=== PATIENT | female | born 1995 | race Caucasian/White ===

== ENCOUNTER 2021-08-07 17:22 | Emergency (ER) | payer BC ==
[~2021-08-07] VITALS: Ht 157.5 cm; Wt 52.2 kg
--- NOTE | 2021-08-07 19:40 | NUR ---
pt bibself from home, pt c/o of wheezing for 2 days on and off, pt uses albuterol inhaler but was not effective. per pt has allergies to cats, dogs, pollen, bananas. denies allergies to medication. pt remains with breathing tx on from RT and verbalizes decreased wheezing. pt connected to monitor.
[2021-08-07] MEDS: IPRATROPIUM NEB FS 0.5 MG/2.5 ML AMPUL.NEB NEB ONE (19:42)
[2021-08-07] MEDS: ALBUTEROL FS 2.5 MG/3 ML VIAL.NEB NEB ONE (19:42)
[2021-08-07] MEDS ORDERED: ALBUTEROL FS 2.5 MG/3 ML VIAL.NEB ONE (19:44)
[2021-08-07] MEDS ORDERED: IPRATROPIUM NEB FS 0.5 MG/2.5 ML AMPUL.NEB ONE (19:44)
[2021-08-07] MEDS ORDERED: predniSONE 20 MG TABLET ONE (20:04)
[2021-08-07] MEDS: predniSONE 20 MG TABLET PO ONE (20:05)
[2021-08-07] MEDS ORDERED: PRED20TA PO (20:07)
[2021-08-07] MEDS ORDERED: ALBU18HF2 INH (20:07)
[2021-08-07] MEDS ORDERED: CETI-90 PO (20:07)
--- NOTE | 2021-08-07 20:40 | NUR ---
breathing tx finished
--- NOTE | 2021-08-07 21:06 | NUR ---
Patient discharged to home in stable condition. Written and verbal after care instructions given. Patient verbalizes understanding of instruction. Pt verbalizes tx effective. Denies sob.
[2021-08-07 21:21] VITALS: BP 129/87
== END 2021-08-07 21:04 | disposition home or self-care (01) ==
LOC: ER 17:22
DX: J45.909 Unspecified asthma, uncomplicated (principal); Z88.0 Allergy status to penicillin
CPT/HCPCS: 94644; 99285; J7512